=== PATIENT | male | born 1960 | race Caucasian/White ===

== ENCOUNTER → 2023-04-13 11:36 | Outpatient (CLI) | payer BC, SELFPAY | PROVIDERS: PCP Internal Medicine; Visit Provider Internal Medicine | DX: I49.3 Ventricular premature depolarization (principal); I10 Essential (primary) hypertension; E78.5 Hyperlipidemia, unspecified; K21.9 Gastro-esophageal reflux disease without esophagitis | CPT/HCPCS: 93225 ==

== ENCOUNTER → 2023-04-16 07:02 | Outpatient (CLI) | payer BC, SELFPAY ==
--- NOTE | 2023-04-16 | CA_ITS ---
APPROVED REPORT Exam: Exercise Treadmill Technologist: Promise Smith, Ht: 5 ft 10 in Wt: 244 lbs BSA: 2.27 m2 HR: 71 bpm BP: 142/90 mmHg Rhythm: NSR Medical History Medical History: HTN, Hyperlipidemia Medications: Lisinopril,,,,, Omeprazole,,,,, Pravastatin,,,,, Vit D3,,,,, Ani,,,,, Magnesium OXIDE,,,,, Multivitamin,,,,, LoraRADINE,,,,, Allergies: No known drug allergies Cardiac Risk Factors: HTN, Hyperlipidemia Stress Test Details Test: Richard HR Resting HR: 78 bpm Max Heart Rate (APMHR): 160 bpm Max HR Achieved: 166 bpm Target HR (85% APMHR): 136 bpm % of APMHR: 104 Recovery HR: 104 bpm HR response to stress: Normal HR response to stress BP Resting BP: 142.0/90 mmHg Max BP: 190/87 mmHg Recovery BP: 136.0/82.0 mmHg BP response to stress: Normal blood pressure response to stress. ECG Resting ECG: NSR, CANNOT R/O OLD INFERIOR KS Stress ECG: No significant ST changes Arrhythmia: PACs, PVCs Recovery ECG: No ST changes Recovery Arrhythmia: PACs, PVCs Clinical Exercise duration: 09:31 min Highest Stage Achieved: Exercise capacity: 10.1 METs Overall Exercise Capacity for Age: Average Stress ECG Conclusion The patient was able to exercise for a total of 9 minutes, 31 seconds on Richard protocol. He achieved a total of 10.1 METS. He had average exercise capacity compared to age and sex matched peers. He has normal HR and BP response to exercise. MAX HR: 160 % OF PM: 100% MAX BP: 190/87 METS: 10.1 TEST STOPPED DUE TO: SOA NO CP OCC PAC AND PVC DURING EXERCISE. IN LATE RECOVERY THE FREQUENCY OF PVCS INCREASED NORMAL ST RESPONSE TO EXERCISE CONCLUSION AVERAGE EXERCISE CAPACITY NORMAL GXT WITH FREQUENT PVCS IN RECOVERY MYOVIEW IMAGES REPORTED SEPARATELY Test Summary REST . . . . . . . Sitting REST 04:15 0.0 0.0 78 . 142/ 90 . . Stage 1 01:00 10.0 1.7 96 . . . . Stage 1 02:00 10.0 1.7 98 . . . . Stage 1 03:00 10.0 1.7 101 . 158/ 88 . . Stage 2 01:00 12.0 2.5 109 . . . . Stage 2 02:00 12.0 2.5 115 . 172/ 85 . . Stage 2 03:00 12.0 2.5 123 . 172/ 85 . . Stage 3 01:00 14.0 3.4 133 . . . . Stage 3 02:00 14.0 3.4 140 . . . . Stage 3 03:00 14.0 3.4 142 . 184/ 80 . . Stage 4 00:31 16.0 4.2 166 . . . Stop exercise at 09:31 RECOVERY 01:00 0.0 0.0 144 . . . . RECOVERY 02:00 0.0 0.0 127 . 190/ 87 . . RECOVERY 03:00 0.0 0.0 114 . 190/ 87 . . RECOVERY 04:00 0.0 0.0 103 . 187/ 81 . . RECOVERY 05:00 0.0 0.0 98 . 160/ 74 . . RECOVERY 06:00 0.0 0.0 99 . 160/ 74 . . RECOVERY 07:00 0.0 0.0 104 . 136/ 82 . . RECOVERY 07:34 0.0 0.0 99 . 136/ 82 . . Electronically signed by : Sarah Beth Rayo, 04/19/2023 19:28:07
--- NOTE | 2023-04-16 07:13 | NM_ITS ---
APPROVED REPORT Exam: Nuclear Stress Test Indication: high BP..high cholesterol..abn ECG Patient Location: Outpatient Stress Tech: Promise Smith [place] Tech:Petra Anton SHYLAAdrian RT(R)(N) Ht: 5 ft 11 in Wt: 244 lbs HR: 78 bpm BP: 142/90 mmHg BSA: 2.29 m2 TID: 0.70 BMI: 34.0 History: high BP..high cholesterol..abn ECG Procedure: Patient exercised on Richard protocol 9:31 minutes and sec, resting heart rate 78 bpm, resting blood pressure 142/90 mmHg, with exercise maximum heart rate achived was 166 bpm which is 104 % of the maximum predicted heart rate and blood pressure was 190/87 mmHg. Patient denied any complaint of chest pain. Patient has Average exercise capacity, achieved 10.1 METs of workload on treadmill, the blood pressure response to exercise was Normal. Cardiac Stress and Resting SPECT Images: Cardiac Stress and Resting SPECT images were obtained using technetium 99m Myoview 29.7 mCi stress and 10.47 mCi at rest. This is a technically difficult study due to significant soft tissue overlap with the cardiac borders. This may affect the diagnostic interpretation of the study findings. Resting and stress imaging in supine and prone positions demonstrate a medium sized, moderate, fixed perfusion defect in the mid to distal anterior LV wall towards the anteroapical region. There is also medium sized, moderate, fixed perfusion defect in the basal lateral wall. The inferior wall visualization is difficult in the setting of significant diaphragmatic overlap. Gated imaging demonstrates normal global LV systolic function. There is mild hypokinesis in the basal lateral and anterior LV hinton. LVEF is calculated at 52%. Conclusion: This is a technically difficult study due to significant soft tissue overlap with the cardiac borders. This may affect the diagnostic interpretation of the study findings. Medium sized, moderate, fixed perfusion defect in the mid to distal anterior LV wall towards the anteroapical region. There is also medium sized, moderate, fixed perfusion defect in the basal lateral wall. The inferior wall visualization is difficult in the setting of significant diaphragmatic overlap. Grossly, there is no evidence of reversible defects. Gated imaging demonstrates normal global LV systolic function. There is mild hypokinesis in the basal lateral and anterior LV hinton. LVEF is calculated at 52%. Due to technically difficult visualization, this nuclear study is indeterminant to conclusively rule out true perfusion defects. Alternative diagnostic modalities may be suggested. Electronically signed by : Sarah Beth Rayo, 04/19/2023 19:32:47
[2023-04-16 07:33] LABS: Basophils # 0.1 K/mm3 (0-0.2); Basophils % 0.7 % (0.1-2.0); Eosinophils # 0.3 K/mm3 (0.0-0.4); Eosinophils % 3.3 % (0.1-12.0); Hematocrit 46.5 % (42.0-52.0); Hemoglobin 14.6 g/dL (14.1-18.0); Lymphocytes # 2.2 K/mm3 (0.7-4.5); Lymphocytes % 29.6 % (10-50); Mean Corpuscular HGB Conc 31.4 g/dL (31.8-35.4); Mean Corpuscular Hemoglobin 29.8 pg (27.0-31.2); Mean Corpuscular Volume 94.7 fl (80-94); Mean Platelet Volume 8.3 fl (7.4-10.4); Monocytes # 0.5 K/mm3 (0.1-1.0); Monocytes % 6.6 % (1.7-9.3); Neutrophils # 4.4 K/mm3 (1.8-7.8); Neutrophils % 59.8 % (37.0-80.0); Platelet Count 254 K/mm3 (142-424); Red Blood Count 4.91 M/mm3 (4.60-6.20); Red Cell Distribution Width 13.2 % (11.5-17.5); White Blood Count 7.4 K/mm3 (4.8-10.8)
[2023-04-16 08:13] LABS: Alanine Aminotransferase 34 U/L (12-78); Albumin Level 3.9 g/dl (3.5-5.0); Alkaline Phosphatase 84 U/L (38-126); Aspartate Amino Transferase 26 U/L (17-59); Bilirubin,Indirect 0.2 mg/dL (0.0-0.9); Bilirubin,Total 0.2 mg/dl (0.2-1.3); Bilirubin,Unconjugated 0.4 mg/dL (0.0-1.1); Blood Urea Nitrogen 18 mg/dl (9-20); Calcium 9.1 mg/dl (8.4-10.2); Carbon Dioxide 29 mmol/L (22.0-30.0); Chloride 103 mmol/L (98-107); Chol/HDL Ratio 4.6 (1-3.5); Cholesterol 133 mg/dl (140-200); Estimated Glomerular Filt Rate 99 ml/min (>60); GFR (African American) 119 ML/MIN (>60); Glucose 94 mg/dl (74-100); HDL Cholesterol 29 mg/dl (40-60); Magnesium 1.8 mg/dl (1.6-2.3); Sodium 139 mmol/L (136-145); Total Protein,Serum 6.7 g/dl (6.3-8.2); Triglycerides 90 mg/dl (30-150); VLDL Cholesterol 18 mg/dL (0-40)
[2023-04-16 08:24] LABS: Direct LDL Cholesterol 82.26 mg/dL (100-129)
[2023-04-16 08:29] LABS: Free T4 (Free Thyroxine) 1.14 ng/dl (0.78-2.19)
[2023-04-16 08:44] LABS: Thyroid Stimulating Hormone 1.51 uIU/mL (0.465-4.68)
== END ==
PROVIDERS: PCP Internal Medicine; Visit Provider Internal Medicine
DX: I10 Essential (primary) hypertension (principal); I49.3 Ventricular premature depolarization; E78.5 Hyperlipidemia, unspecified; K21.9 Gastro-esophageal reflux disease without esophagitis
CPT/HCPCS: 36415; 78452; 80048; 80061; 80076; 83735; 84439; 84443; 85025; 93017; A9502

== ENCOUNTER → 2023-05-03 14:35 | Outpatient (CLI) | payer BC, SELFPAY ==
--- NOTE | 2023-05-03 14:40 | CA_ITS ---
APPROVED REPORT EXAM: Comprehensive 2D, Doppler, and color-flow Echocardiogram Case Reviewer: Lita Messer CRT Ht: 5 ft 10 in Wt: 244lbs BSA: 2.27 BP: 114/77 mmHg Indications: Palpitations, Hyperlipidemia, Hypertension/HDD, PVC's 2D Dimensions LVOT 2.15 cm (M/F) 1.5-2.5 LA Volume 36.80 mL LA Volume Index 15.80 mL/m2 (M/F) 16-34 M-Mode Dimensions RVDd 3.67 cm (0.9-2.6) LA Diam 3.89 cm (1.9-4.0) LVDd 5.23 cm (3.5-5.7) Ao Diam 4.48 cm (2.0-3.7) LVDs 3.41 cm (3.5-5.7) IVSd 1.06 cm (0.6-1.1) PWd 0.72 cm (0.6-1.1) EF (Teich) 63.60% FS 34.80% EDV (Teich) 131.20 mL TAPSE 2.51 (<1.7) ESV (Teich) 47.80 mL LV Diastology E Decel Time 220.00 (160-240 msec) E/A Ratio 0.68 MED E' 7.00 (< 7 cm/sec) MED A' 15.30 cm/s E'/MED E' Ratio 7.64 (>14) LAT E' 11.90 (<10 cm/sec) LAT A' 13.50 cm/s E/LAT E' Ratio 4.50 (>14) Aortic Valve AO Peak GR. 6.80 mmHg Mitral Valve MV E Max Alfredo. 54.00 (40-130 cm/s) MV A Velocity 79.00 (40-130 cm/s) E/A Ratio 0.68 MV Decel. Time 220.00 (160-240 ms) MV PHT 64.00 ms Pulmonary Valve PV Peak Velocity 201.00 (50-150 cm/s) Tricuspid Valve TR P. Velocity 239.00 cm/s RAP Estimate 10.00 mmHg RVSP 32.80 mmHg Left Ventricle The left ventricle is normal size. The left ventricular systolic function is normal. The left ventricular ejection fraction is within the normal range. There is normal left ventricular wall thickness. There is normal LV segmental wall motion. The left ventricular diastolic function is normal. LVEF is 50%. Right Ventricle The right ventricle is mildly dilated. The right ventricular systolic function is normal. Atria The left atrium size is normal. The right atrium size is normal. There is no Doppler evidence of interatrial shunt. Aortic Valve The aortic valve is normal in structure. There is no aortic valvular stenosis. Trace aortic regurgitation. Mitral Valve The mitral valve is normal in structure. No evidence of mitral valve stenosis. Mild mitral regurgitation. Tricuspid Valve The tricuspid valve leaflets are thin and pliable. Trace tricuspid regurgitation. There is insufficient TR jet to estimate RVSP. Pulmonic Valve The pulmonary valve is normal in structure. Trace pulmonic regurgitation. Great Vessels The aortic root is normal in size. The ascending aorta is not well visualized. IVC is normal in size and collapses >50% with inspiration. Pericardium There is no pericardial effusion. Other Information Study Quality: Fair Conclusion Low normal LV systolic function. No significant valvular stenosis or regurgitation. Further evaluation by cardiac MRI (cardiomyopathy protocol) for low normal LVEF=50% and frequent PVCs is recommended. Electronically signed by : Sarah Beth Rayo MD 05/07/2023 22:49:18
== END ==
PROVIDERS: PCP Internal Medicine; Visit Provider Internal Medicine
DX: I10 Essential (primary) hypertension (principal); E78.5 Hyperlipidemia, unspecified; I49.3 Ventricular premature depolarization; K21.9 Gastro-esophageal reflux disease without esophagitis
CPT/HCPCS: 93306